=== PATIENT | female | born 1995 | race American Indian/Alaskan Native ===

== ENCOUNTER 2016-04-29 17:53 | Emergency (ER) | payer SELFPAY ==
[2016-04-29 18:28] VITALS: BP 113/75
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
[2016-04-29 20:43] LABS: Hematocrit 32.6 % (30.3-42.9); Hemoglobin 10.5 gm/dl (10.1-14.3); Mean Corpuscular HGB Conc 32 % (30-34); Mean Corpuscular Hemoglobin 28 pg (28-32); Mean Corpuscular Volume 87 fl (79-97); Platelet Count 336 K/mm3 (140-440); Red Blood Count 3.73 M/mm3 (3.65-5.03); Red Cell Distribution Width 14.4 % (13.2-15.2)
[2016-04-29 20:52] LABS: BUN/Creatinine Ratio 21.66; Blood Urea Nitrogen 13 mg/dL (7-17); Carbon Dioxide 25 mmol/L (22-30); Chloride 104.4 mmol/L (98-107); Glucose 103 mg/dL (65-100); Potassium 4.6 mmol/L (3.6-5.0); Sodium 141 mmol/L (137-145)
[2016-04-29 20:58] LABS: Anion Gap 16 mmol/L
--- NOTE | 2016-05-01 04:32 | ED Elopement Review ---
ED Pt Elopement review - Results review Lab results: Laboratory Tests 04/29/16 04/29/16 04/30/16 20:20 20:20 01:58 WBC 6.0 RBC 3.73 Hgb 10.5 Hct 32.6 MCV 87 MCH 28 MCHC 32 RDW 14.4 Plt Count 336 Sodium 141 Potassium 4.6 Chloride 104.4 Carbon Dioxide 25 Anion Gap 16 BUN 13 Creatinine 0.6 L Estimated GFR > 60 BUN/Creatinine Ratio 21.66 Glucose 103 H Calcium 9.0 Urine HCG, Qual Negative - Call Back decision Pt Call Back Decision: No action required
== END 2016-04-29 20:21 | disposition left against medical advice (07) ==
LOC: ED 17:53
DX: R51 Headache (principal); M54.2 Cervicalgia; Z53.21 Procedure and treatment not carried out due to patient leaving prior to being seen by health care provider
CPT/HCPCS: 36415; 80048; 81025; 85027